=== PATIENT | female | born 2005 | race Caucasian/White ===

== ENCOUNTER 2023-02-19 00:22 | Emergency (ER) | payer SELFPAY ==
[~2023-02-19] VITALS: Ht 165.1 cm; Wt 63.0 kg
[2023-02-19 00:32] VITALS: BP 124/72
== END 2023-02-19 02:42 | disposition left against medical advice (07) ==
LOC: ER 00:22
DX: Z53.21 Procedure and treatment not carried out due to patient leaving prior to being seen by health care provider (principal)
CPT/HCPCS: 99281